=== PATIENT | female | born 1995 | race Caucasian/White ===

== ENCOUNTER 2025-03-09 05:43 | Inpatient (IN) | payer BC, OTHER ==
[2025-03-09] MEDS ORDERED: CARBOPROST TROMETHAMINE 250 MCG/ML 1 ML AMP IM PRN (05:56)
[2025-03-09] MEDS ORDERED: LIDOCAINE 0.5% (PF) 5 MG/ML (50 ML SDV) SQ PRN (05:56)
[2025-03-09] MEDS ORDERED: OXYTOCIN 10 UNIT/ML 1 ML VIAL IM PRN (05:56)
[2025-03-09] MEDS ORDERED: TERBUTALINE 1 MG/ML VIAL SQ PRN (05:56)
[2025-03-09] MEDS ORDERED: METHYLERGONOVINE 0.2 MG/ML 1 ML AMP IM PRN (05:56)
[2025-03-09] MEDS ORDERED: TRANEXAMIC 1,000 MG/100ML-NACL 1,000 MG in EMPTY BAG 1 BAG IV PRN (05:56)
[2025-03-09] MEDS: LACTATED RINGERS 1,000 ML IV SCH (06:15)
[2025-03-09] MEDS: OXYTOCIN 30 UNITS/500 ML NS 30 UNIT in SALINE 1 500ML.BAG IV SCH (06:25)
[2025-03-09 06:33] LABS: Basophils # (A) 0.03 10*3/uL (0.00-0.10); Basophils % (A) 0.3 %; Eosinophils # (A) 0.16 10*3/uL (0.04-0.35); Eosinophils % (A) 1.8 %; HCT 32.2 % (37.2-46.3); HGB 10.2 g/dL (12.0-15.0); Lymphocytes # (A) 3.22 10*3/uL (0.90-5.00); Lymphocytes % (A) 36.3 %; MCH 25.6 pg (27.0-32.0); MCHC 31.7 g/dL (32.0-37.0); MCV 80.7 fL (80.0-97.0); Monocytes # (A) 0.67 10*3/uL (0.20-1.00); Monocytes % (A) 7.6 %; Neutrophils # (A) 4.73 10*3/uL (1.80-7.70); Neutrophils % (A) 53.3 %; Platelet Count 241 10*3/uL (140-440); RBC 3.99 10*6/uL (4.10-5.20); RDW 14.6 % (11.5-14.5); WBC 8.87 10*3/uL (4.50-10.00)
--- NOTE | 2025-03-09 08:55 | P.HPOB ---
History of Present Illness H&P Date: 03/09/25 Chief Complaint: induction of labor Ms. Godwin is a 29 year old at 39 weeks and 2 days gestation with EDC of 03/16/2025 who presents for induction of labor for chronic hypertension which has been controlled without antihypertensives. The patient also has hypothyroidism f or which she takes levothyroxine. The fetus is estimated in the 92%ile based on a 35 week growth US. Obstetric history: 1 FTVD, no compilations Labwork: blood type O positive, antibody screen negative, rubella immune, VDRL non-reactive, HBsAg negative, HIV negative, HCV Ab non-reactive, gonorrhea negative, chlamydia negative, 1 hour GTT wnl, GBS negative Past Medical History Past Medical History: No Reported History History of Any Multi-Drug Resistant Organisms: None Reported Past Surgical History: No Surgical Hx Reported Past Anesthesia/Blood Transfusion Reactions: No Reported Reaction Past Psychological History: No Psychological Hx Reported Smoking Status: Never smoker Past Alcohol Use History: None Reported Past Drug Use History: None Reported Medications and Allergies Home Medications Medication Instructions Recorded Confirmed Type Cholecalciferol [Vitamin D3 (10 03/09/25 History Mcg = 400 Iu)] Levothyroxine Sodium 03/09/25 History Allergies Allergy/AdvReac Type Severity Reaction Status Date / Time No Known Allergies Allergy Verified 03/09/25 05:54 Exam Intake and Output 03/08/25 03/09/25 03/09/25 22:59 06:59 14:59 Other: Weight 117.934 kg Focused physical exam is performed. This is a healthy-appearing in no apparent distress. Breathing is non-labored. Abdomen is gravid and non-tender. Cervical exam is 3/70/-3. AROM is undertaken with clear fluid noted. Extremities non-tender and non-edematous. heart tones are Category I and tocometer is graphing contractions every 2-4 minutes. Results Result Diagrams: 03/09/25 06:09 Abnormal Lab Results - Last 24 Hours (Table) 03/09/25 Range/Units 06:09 RBC 3.99 L (4.10-5.20) 10*6/uL Hgb 10.2 L (12.0-15.0) g/dL Hct 32.2 L (37.2-46.3) % MCH 25.6 L (27.0-32.0) pg MCHC 31.7 L (32.0-37.0) g/dL Immature Gran # 0.06 H (0.00-0.04) 10*3/uL Assessment and Plan Assessment: 29 year old at 39 weeks and 2 days presenting for induction of labor Plan: Admit, clear liquid diet, pitocin per protocol, continuous EFM and tocometer, anticipate vaginal delivery
[2025-03-09] MEDS: NALBUPHINE 10 MG/ML (10 ML MDV) IV PRN (11:26)
[2025-03-09 12:09] LABS: Basophils # (A) 0.04 10*3/uL (0.00-0.10); Basophils % (A) 0.4 %; Eosinophils # (A) 0.13 10*3/uL (0.04-0.35); Eosinophils % (A) 1.2 %; HCT 31.9 % (37.2-46.3); HGB 10.1 g/dL (12.0-15.0); Lymphocytes # (A) 2.99 10*3/uL (0.90-5.00); Lymphocytes % (A) 28.7 %; MCH 25.5 pg (27.0-32.0); MCHC 31.7 g/dL (32.0-37.0); MCV 80.6 fL (80.0-97.0); Monocytes # (A) 0.73 10*3/uL (0.20-1.00); Monocytes % (A) 7.0 %; Neutrophils # (A) 6.48 10*3/uL (1.80-7.70); Neutrophils % (A) 62.1 %; Platelet Count 228 10*3/uL (140-440); RBC 3.96 10*6/uL (4.10-5.20); RDW 14.6 % (11.5-14.5); WBC 10.43 10*3/uL (4.50-10.00)
[2025-03-09 12:28] LABS: ALT 10 U/L (4-34); AST 17 U/L (14-36); African American GFR (CKD) >90 (>60 ml/min/1.73 sqM); Blood Urea Nitrogen 7 mg/dL (7-17); LDH 212 U/L (120-246); Non-African American GFR(CKD) >90 (>60 ml/min/1.73 sqM); Uric Acid 5.1 mg/dL (3.7-7.4)
[2025-03-09 12:52] LABS: Bacteria,Urine Rare /hpf; Bilirubin,Urine Negative (Negative); Blood,Urine Small (Negative); Color,Urine Yellow; Glucose,Urine (UA) Negative (Negative); Ketones,Urine Negative (Negative); Leukocyte Esterase,Urine Trace (Negative); Mucus,Urine Many /hpf; Nitrite,Urine Negative (Negative); PH, Urine 6.0 (5.0-8.0); Protein,Urine 1+ (Negative); RBC,Urine 5 /hpf (0-5); Specific Gravity,Urine 1.029 (1.001-1.035); Squamous Epithelial Cell,Urine 7 /hpf (0-4); Urobilinogen,Urine <2.0 mg/dL (<2.0); WBC,Urine 3 /hpf (0-5)
[2025-03-09 13:03] LABS: Fibrinogen 515.0 mg/dL (200-500); INR 0.9 (<1.2); Prothrombin Time 10.4 sec (10.0-12.5)
[2025-03-09 13:59] LABS: Protein/Creatinine Ratio,Urine 0.076
[2025-03-09] MEDS ORDERED: fentaNYL (PF) 50 MCG/ML 5 ML AMP ONE (15:15)
[2025-03-09] MEDS ORDERED: SODIUM CHLORIDE 0.9% 250 ML BAG ONE (15:15)
[2025-03-09] MEDS ORDERED: ROPIVACAINE 5 MG/ML 30 ML VIAL ONE (15:15)
[2025-03-09] MEDS ORDERED: BENZOCAINE/MENTHOL SPRAY 1 GM/SPRAY AEROSOL TOPICAL PRN (16:45)
[2025-03-09] MEDS ORDERED: SIMETHICONE 80 MG CHEWABLE PO PRN (16:45)
[2025-03-09] MEDS ORDERED: HYDROCORTISONE 2.5% RECTAL CREAM 30 GM TUBE RECTAL PRN (16:45)
[2025-03-09] MEDS ORDERED: ZOLPIDEM 5 MG TAB PO PRN (16:45)
[2025-03-09] MEDS ORDERED: LANOLIN CREAM 1 GM TUBE TOPICAL PRN (16:45)
[2025-03-09] MEDS ORDERED: diphenhydrAMINE 25 MG CAP PO PRN (16:45)
[2025-03-09] MEDS ORDERED: diphenhydrAMINE 50 MG/ML 1 ML VIAL IVP PRN ×2 (16:45)
--- NOTE | 2025-03-09 16:45 | P.PROBDLV ---
Vaginal Delivery Note - . Vaginal Delivery Note: DATE OF SERVICE: 03/09/2025 PROCEDURE: Normal Vaginal Delivery ATTENDING: Dr. Enid Tijerina MD ESTIMATED BLOOD LOSS: 200 mL FINDINGS: VMI, Apgars 9/9. Weight 8 pounds and 4 ounces (3740 grams) PROCEDURE: Ms. Godwin is a 29 year old at 39 weeks presenting to labor and delivery for induction of labor for chronic hypertension. For further details, please review the admitting H&P. Pitocin was titrated per protocol. AROM was undertaken at 840 revealing clear amniotic fluid. The patient was completely dilated at 1632. A viable male was delivered with one push over an intact perineum. The infant was placed on the maternal abdomen and bulb suctioned. The infant was noted to be spontaneously crying. Cord was clamped and cut after a 30-second delay. The infant was handed off to the pediatric team. Placenta was delivered whole with gentle cord traction at 1633. Oxytocin was started to facilitate uterine tone. Uterine fundus was found to be firm and below the umbilicus upon fundal massage. Thorough examination of the cervix, vagina, periurethral area, and perineum revealed no lacerations. The patient is stable and allowed to begin the bonding process.
[2025-03-09] MEDS: IBUPROFEN 800 MG TAB PO SCH (19:53)
[2025-03-09 22:30] VITALS: TEMP 97.4
[2025-03-09] MEDS: SENNOSIDES-DOCUSATE SODIUM 1 EACH TAB PO SCH (22:31)
[2025-03-09] MEDS: ACETAMINOPHEN TAB 500 MG TAB PO SCH (22:31)
[2025-03-10 07:22] LABS: Basophils # (A) 0.04 10*3/uL (0.00-0.10); Basophils % (A) 0.3 %; Eosinophils # (A) 0.17 10*3/uL (0.04-0.35); Eosinophils % (A) 1.3 %; HCT 30.2 % (37.2-46.3); HGB 9.6 g/dL (12.0-15.0); Lymphocytes # (A) 3.72 10*3/uL (0.90-5.00); Lymphocytes % (A) 28.8 %; MCH 25.7 pg (27.0-32.0); MCHC 31.8 g/dL (32.0-37.0); MCV 80.7 fL (80.0-97.0); Monocytes # (A) 0.79 10*3/uL (0.20-1.00); Monocytes % (A) 6.1 %; Neutrophils # (A) 8.11 10*3/uL (1.80-7.70); Neutrophils % (A) 62.9 %; Platelet Count 183 10*3/uL (140-440); RBC 3.74 10*6/uL (4.10-5.20); RDW 14.8 % (11.5-14.5); WBC 12.91 10*3/uL (4.50-10.00)
--- NOTE | 2025-03-10 09:00 | P.DS ---
Providers Date of admission: 03/09/25 05:43 Expected date of discharge: 03/10/25 Attending physician: Enid Tijerina MD Primary care physician: Sangita Ndiaye MD Hospital Course: Ms. Godwin is 29 is a now PPD#1 s/p after induction of labor at 39 weeks for chronic HTN. The patient is doing well this morning and had no acute events overnight. She has no complaints this morning. She reports minimal lochia, passing flatus, voiding without difficulty, ambulating, and eating/drinking without nausea or vomiting. doing well at bedside, s/p circumcision. She denies chest pain, shortness of breathing, fevers, or chills overnight. She denies pain or swelling in the legs. restrictions are reviewed with the patient including pelvic rest for 6 weeks. The patient is encouraged to call the office if she experiences any heavy bleeding, foul- smelling discharge, breast complaints, or any if she has any other concerns. She will follow up in the office with in 1 week for blood pressure check. All questions are answered. Patient Condition at Discharge: Good Plan - Discharge Summary New Discharge Prescriptions: New Ibuprofen [Motrin] 600 mg PO Q6HR PRN #30 tab PRN Reason: Mild Pain (Scale 1 To 3) Acetaminophen Tab [Tylenol] 650 mg PO Q6H PRN #30 tab PRN Reason: Mild Pain (Scale 1 To 3) No Action Levothyroxine Sodium Cholecalciferol [Vitamin D3 (10 Mcg = 400 Iu)] Discharge Medication List Cholecalciferol [Vitamin D3 (10 Mcg = 400 Iu)] 03/09/25 [History] Levothyroxine Sodium 03/09/25 [History] Acetaminophen Tab [Tylenol] 650 mg PO Q6H PRN #30 tab 03/10/25 [Rx] Ibuprofen [Motrin] 600 mg PO Q6HR PRN #30 tab 03/10/25 [Rx] Follow up Appointment(s)/Referral(s): Enid Tijerina MD [STAFF PHYSICIAN] - 04/25/25 2:15 pm (Needs 1 week BP check appointment) Activity/Diet/Wound Care/Special Instructions: Instructions 1. Do not begin any exercise program for 3 weeks. 2. Do not resume sexual relations for 6 weeks or longer if uncomfortable. 3. You may take tub baths or showers at any time. 4. You may use tampons if desired after 6 weeks. 5. Keep any areas repaired with stitches clean and dry. 6. If you are not nursing, wear a good fitting, supportive bra during the day and limit fluid intake for at least 1 week to prevent breast engorgement. 7. Call the office, , within the next week to make appointment for your 6 week checkup if it has not already been made. 8. Report any of the following occurrences to the doctor promptly: a. Heavy, excessive bleeding b. Chills, fever c. Burning or frequency of urination d. Pain or redness and breasts if nursing e. Increasing pain or swelling of vulva (stitches). In addition to the above instructions, the following additional should be followed: 1. No heavy lifting or straining (exercising) until after 6 week checkup. 2. Keep abdominal incision clean and dry: You may wear a dressing if more comfortable. 3. Make office appointment for 2 weeks after delivery date. Discharge Disposition: HOME SELF-CARE
[2025-03-10 16:17] VITALS: BP 112/76; PULSE 68; RESP 15
== END 2025-03-10 17:50 | disposition home or self-care (01) | DRG 807 ==
LOC: 4FBP 05:43
PROVIDERS: ADMIT Obstetrics & Gynecology; ATTEND Obstetrics & Gynecology
PROC: 10E0XZZ Delivery of Products of Conception, External Approach (ICD-10-PCS; principal; 2025-03-09)
PROC: 10907ZC Drainage of Amniotic Fluid, Therapeutic from Products of Conception, Via Natural or Artificial Opening (ICD-10-PCS; principal; 2025-03-09)
PROC: 3E033VJ Introduction of Other Hormone into Peripheral Vein, Percutaneous Approach (ICD-10-PCS; principal; 2025-03-09)
DX: O10.92 Unspecified pre-existing hypertension complicating childbirth (principal); E03.9 Hypothyroidism, unspecified; O99.284 Endocrine, nutritional and metabolic diseases complicating childbirth; Z79.890 Hormone replacement therapy; Z3A.39 39 weeks gestation of pregnancy; Z37.0 Single live birth
CPT/HCPCS: 81001; 82565; 82570; 83615; 84156; 84450; 84460; 84520; 84550; 85025; 85384; 85610; 85730; 86850; 86900; 86901